=== PATIENT | female | born 1965 | race Caucasian/White ===

== ENCOUNTER → 2021-10-02 | Outpatient (CLI) | payer BC, OTHER | LOC: EXRD 09-27 14:30 | DX: N28.1 Cyst of kidney, acquired (principal); E66.9 Obesity, unspecified | CPT/HCPCS: 76775 ==

== ENCOUNTER → 2021-10-19 | Outpatient (CLI) | payer BC | LOC: EXRD 10-11 08:30 | DX: Z78.0 Asymptomatic menopausal state (principal); N28.1 Cyst of kidney, acquired; E66.9 Obesity, unspecified | CPT/HCPCS: 77080 ==

== ENCOUNTER 2021-11-28 23:38 | Emergency (ER) | payer BC, OTHER ==
[2021-11-29 00:06] LABS: HEMOGLOBIN 13.9 gm/dl (12.3-15.3); RED BLOOD COUNT 4.22 M/UL (4.00-5.10)
[2021-11-29 00:24] LABS: BUN/CREATININE RATIO 28 (0-10)
== END 2021-11-29 04:13 | disposition home or self-care (01) ==
LOC: ER1 23:38
PROVIDERS: Emergency Medicine
DX: N13.2 Hydronephrosis with renal and ureteral calculous obstruction (principal)
CPT/HCPCS: 80053; 81001; 85025; 96372; 99284; J1885